=== PATIENT | male | born 1950 | race Caucasian/White ===

== ENCOUNTER 2025-01-12 07:06 | Emergency (ER) | payer MEDICAID ==
[~2025-01-12] VITALS: Ht 180.3 cm; Wt 98.7 kg
[2025-01-12] MEDS ORDERED: ONDANSETRON 4 MG TAB ODT SL ONE (07:45)
[2025-01-12] MEDS ORDERED: OXYCODONE/APAP 5/325 TAB PO ONE (07:45)
[2025-01-12] MEDS ORDERED: IBUPROFEN 600 MG TAB PO ONE (08:45)
[2025-01-12] MEDS ORDERED: ACETAMINOPHEN 500 MG TAB PO ONE (08:45)
[2025-01-12] MEDS ORDERED: LIDOCAINE HCL 4% 1 EACH PATCH TD ONE (08:45)
[2025-01-12 08:54] VITALS: BP 199/87
[2025-01-12] MEDS ORDERED: LIDOCAINE PATCH REMOVAL 1 EA TD SCH (21:00)
== END 2025-01-12 08:56 | disposition home or self-care (01) ==
LOC: ED 07:06
DX: M25.561 Pain in right knee (principal); I10 Essential (primary) hypertension; E11.9 Type 2 diabetes mellitus without complications
CPT/HCPCS: 73502; 73560; 73590; 99283; A9270